=== PATIENT | male | born 1990 | race Two or more races ===

== ENCOUNTER → 2019-07-30 | Emergency (ER) | payer OTHER ==
[~2019-07-30] VITALS: Ht 180.3 cm; Wt 131.5 kg
[~2019-07-30] MED LIST: IV NS 0.9% 500 ML BAG IV ONE; LORAZEPAM INJ 2 MG/ML VIAL IV ONE; LORAZEPAM INJ 2 MG/ML VIAL ONE; POTASSIUM CHLORIDE 10 MEQ TABLET.SA ONE; POTASSIUM CHLORIDE 20 MEQ TAB.PRT.SR PO ONE
--- NOTE | 2019-07-30 10:04 | NUR ---
pt rec'd to er via em[facility] comes from home parents called 911 pt lost 100 pounds in one month altered very afraid confused and crying iv started 20 g rt ac labs drawn sent to lab AWAITING EVALUATION BY ER PROVIDER.
[2019-07-30 10:09] LABS: BASOPHILS % (AUTO) 0.1 % (0.0-2.0); EOSINOPHILS % (AUTO) 0.5 % (0.0-6.0); HEMATOCRIT 46 % (39-51); LYMPHOCYTES % (AUTO) 25.1 % (20.0-44.0); MEAN CORPUSCULAR HGB CONC 34 g/dl (31.0-36.0); MEAN CORPUSCULAR VOLUME 79 fL (80-96); MONOCYTES # (AUTO) 0.8 /CMM (0.1-1.30); MONOCYTES % (AUTO) 6.6 % (2.0-12.0); NEUTROPHILS % (AUTO) 67.7 % (43.0-81.0); PLATELET COUNT (AUTO) 289 /CMM (150-450); RED BLOOD CELL COUNT(AUTO) 5.87 MIL/uL (4.5-6.0); WHITE BLOOD COUNT (AUTO) 11.8 K/uL (4.3-11.0)
[2019-07-30 10:12] LABS: CALCIUM, SERUM 9.5 mg/dL (8.5-10.1); CARBON DIOXIDE 19 mmol/L (21-32); CHLORIDE 100 mmol/L (98-107); CREATININE 1.6 mg/dL (0.6-1.3); GLUCOSE 149 mg/dL (74-106); POTASSIUM 2.9 mmol/L (3.5-5.1); SODIUM SERUM 139 mmol/L (136-145); UREA NITROGEN, BLOOD 12 mg/dL (7-18)
[2019-07-30 10:16] LABS: SERUM AMMONIA 8 umol/L (11-32)
--- NOTE | 2019-07-30 10:25 | NUR ---
pt sent to [place]
[2019-07-30 10:26] LABS: ACETAMINOPHEN 0 ug/ml (10-30); ALANINE AMINOTRANSFERASE 85 U/L (12-78); ALBUMIN 4.5 g/dL (3.4-5.0); ALCOHOL, BLOOD < 3 mg/dL (0-0); ALKALINE PHOSPHATASE 73 U/L (46-116); ASPARTATE AMINOTRANSFERASE 43 U/L (15-37); BILIRUBIN,DIRECT 0.2 mg/dL (0.0-0.2); BILIRUBIN,TOTAL 1.2 mg/dL (0.2-1.0); SALICYLATE < 0.2 mg/dL (2.8-20.0); TOTAL PROTEIN, SERUM 8.4 g/dL (6.4-8.2)
[2019-07-30 11:20] LABS: APPEARANCE,URINE Clear (CLEAR); BILIRUBIN,URINE SMALL (NEGATIVE); BLOOD, URINE Negative Ery/uL (NEGATIVE); COLOR,URINE Yellow (YELLOW); KETONES,URINE 15 (NEGATIVE); LEUKOCYTE ESTERASE ,URINE Negative (NEGATIVE); NITRITE, URINE Negative (NEGATIVE); PH,URINE 5.5 (5.0-8.0); PROTEIN,URINE Negative (NEGATIVE); UGLUCOSE Negative (NEGATIVE); UROBILINOGEN,URINE 0.2 EU/dL (0.2)
[2019-07-30 11:27] LABS: THYROID STIMULATING HORMONE 5.032 uIU/mL (0.358-3.74)
--- NOTE | 2019-07-30 14:13 | NUR ---
PT ACCEPTED TO [facility] ACCEPTING MD IS DR SIM NUMBER FOR REPORT IS [phone] [id number]
--- NOTE | 2019-07-30 14:52 | NUR ---
CALL -[facility] ETA [id number] RES#[phone]
[2019-07-30 14:58] VITALS: BP 152/85
--- NOTE | 2019-07-30 15:42 | NUR ---
CALLED REPORT TO JOSE AT [facility] STABLE FOR TRANSFER
== END | disposition short-term general hospital (02) ==
LOC: ER 09:39
DX: F28 Other psychotic disorder not due to a substance or known physiological condition (principal); R94.31 Abnormal electrocardiogram [ECG] [EKG]
CPT/HCPCS: 36415; 70450; 71045; 80048; 80076; 80305; 80307; 80329; 81001; 82140; 84443; 84484; 85025; 93005; 96374; 99285; G0480; J2060; J7040; 81000-TC